=== PATIENT | male | born 1960 | race Caucasian/White ===

== ENCOUNTER 2024-10-13 07:50 | Observation (INO) | payer MEDICAID ==
[2024-10-13 08:38] LABS: BASOPHILS ABSOLUTE AUTO 0.04 K/uL (0.00-0.10); BASOPHILS PERCENT AUTO 0.8 % (0.1-1.3); EOSINOPHILS ABSOLUTE AUTO 0.09 K/uL (0.00-0.40); EOSINOPHILS PERCENT AUTO 1.7 % (0.0-5.4); IMMATURE GRAN PERCENT AUTO 0.4 % (0.0-0.7); LYMPHOCYTES ABSOLUTE AUTO 1.55 K/uL (0.8-3.3); LYMPHOCYTES PERCENT AUTO 29.1 % (11.4-47.7); MONOCYTES ABSOLUTE AUTO 0.52 K/uL (0.20-0.90); MONOCYTES PERCENT AUTO 9.8 % (3.3-12.6); NEUTROPHILS ABSOLUTE AUTO 3.11 K/uL (1.0-7.6); NEUTROPHILS PERCENT AUTO 58.2 % (40.0-78.1); PLATELET COUNT,PLT 185 K/uL (130-375); RED BLOOD CELL COUNT 5.63 M/uL (4.14-5.76); WHITE BLOOD CELL COUNT,WBC 5.3 K/uL (3.2-11.0)
[2024-10-13 08:41] LABS: IMMATURE GRAN ABSOLUTE AUTO 0.02 K/uL (0.00-0.23)
[2024-10-13] MEDS: Ondansetron 4 MG/2 ML SDV IVPUSH ONE (08:49)
[2024-10-13] MEDS: Ketorolac 30 MG/ML SDV IVPUSH ONE (08:49)
[2024-10-13] MEDS: Iopamidol 612 MG/ML 100 ML Bottle IV PRN (09:01)
[2024-10-13] MEDS: Sodium Chloride 0.9% 10 ML Syringe FLUSH PRN (09:01)
[2024-10-13 09:14] LABS: A/G RATIO 1.5 (1.2-2.2); ALANINE AMINOTRANSFERASE,ALT 28 U/L (12-78); ASPARTATE AMNIOTRANSFERASE,AST 17 U/L (15-37); BILIRUBIN TOTAL 0.6 mg/dL (0.2-1.0); BLOOD UREA NITROGEN,BUN 28 mg/dL (7-18); CARBON DIOXIDE,CO2 27 mmol/L (21-32); CHLORIDE,CL 105 mmol/L (100-108); CREATININE 1.1 mg/dL (0.8-1.3); EST CRCL DRUG DOSING (CG) 60.57 mL/min; ESTIMATED GFR 76 mL/min (>60); GLUCOSE RANDOM 113 mg/dL (74-106); POTASSIUM,K 3.9 mmol/L (3.6-5.2); PROTEIN TOTAL,TP 6.9 g/dL (6.4-8.2); SODIUM,NA 141 mmol/L (140-148)
[2024-10-13 09:26] LABS: APPEARANCE,URINE CLEAR (CLEAR); GLUCOSE,URINE NEGATIVE (NEGATIVE); OCCULT BLOOD,URINE NEGATIVE (NEGATIVE)
[2024-10-13 09:32] LABS: SQUAMOUS EPITHELIAL CELLS,UR NOT SEEN /HPF
[2024-10-13] MEDS: Piperacillin/Tazobactam/Dext 4.5 GM in Premix Bag 1 BAG IV ONE (11:42)
[2024-10-13] MEDS ORDERED: Acetaminophen/oxyCODONE 325-5 MG Tab PO PRN (12:36)
[2024-10-13] MEDS ORDERED: Ondansetron 4 MG/2 ML SDV IVPUSH PRN (12:36)
[2024-10-13] MEDS ORDERED: Ketorolac 30 MG/ML SDV IVPUSH PRN (12:36)
[2024-10-13] MEDS: Lactated Ringers 1,000 ML IV SCH (13:03)
[2024-10-13] MEDS ORDERED: Glycopyrrolate 0.2 MG/ML 5 ML MDV ONE (13:10)
[2024-10-13] MEDS ORDERED: Succinylcholine 200 MG/10 ML MDV ONE (13:10)
[2024-10-13] MEDS ORDERED: Ondansetron 4 MG/2 ML SDV ONE (13:10)
[2024-10-13] MEDS ORDERED: Propofol 200 MG/20 ML SDV ONE (13:10)
[2024-10-13] MEDS ORDERED: Dexamethasone 4 MG/ML SDV ONE (13:10)
[2024-10-13] MEDS ORDERED: fentaNYL 250 MCG/5 ML SDV ONE (13:12)
[2024-10-13] MEDS ORDERED: fentaNYL 100 MCG/2 ML SDV ONE (13:52)
[2024-10-13] MEDS: Bupivacaine 0.5%/EPINEPHrine 1:200,000 50 ML MDV ONE (14:08)
== END 2024-10-14 12:25 | disposition home or self-care (01) ==
LOC: JP.ED 07:50 → JP.SDS 13:01 → JP.MS 13:02
PROVIDERS: ADMIT Surgery; ATTEND Surgery
DX: K35.80 Unspecified acute appendicitis (principal); K38.2 Diverticulum of appendix
CPT/HCPCS: 00840; 36415; 44970; 74177; 80053; 81001; 83690; 85025; 93005; 99285; A9270; J0330; J1100; J1596; J1885; J2405; J2543; J2704; J2710; J3010; J3490; J7030; J7120; Q9967

== ENCOUNTER 2024-11-19 09:43 | Emergency (ER) | payer MEDICAID | END 2024-11-19 12:14 | disposition home or self-care (01) | LOC: JP.ED 09:43 | DX: M26.601 Right temporomandibular joint disorder, unspecified (principal); E78.00 Pure hypercholesterolemia, unspecified; I10 Essential (primary) hypertension; Z79.899 Other long term (current) drug therapy | CPT/HCPCS: 70100; 70100-26; 99283 ==